=== PATIENT | female | born 1960 | race Hispanic/Latino ===

== ENCOUNTER 2024-01-13 19:12 | Emergency (ER) | payer SELFPAY ==
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
[2024-01-13] MEDS: PERCOCET 5/325 1 TABLET PO (20:07)
[2024-01-13 20:19] VITALS: BP 122/68
== END 2024-01-13 21:11 | disposition home or self-care (01) ==
LOC: EMR 19:12
PROVIDERS: EMERGENCY PHYSICIAN Emergency Medicine
DX: S82.831A Other fracture of upper and lower end of right fibula, initial encounter for closed fracture (principal); W19.XXXA Unspecified fall, initial encounter; R03.0 Elevated blood-pressure reading, without diagnosis of hypertension
CPT/HCPCS: 99283; 29515; 73610

== ENCOUNTER → 2024-01-14 14:08 | Outpatient (REF) | payer SELFPAY ==
[2024-01-14 16:56] LABS: % Basophils 0.5 % (0-2); % Eosinophils 3.7 % (0-6); % Immature Granulocytes 0.2 % (0-0.5); % Lymphocytes 31.9 % (20.5-51.1); % Monocytes 7.6 % (1.7-9.3); % Neutrophils 56.1 % (42.2-75.2); Absolute Eosinophils 0.2 10^3/uL (0-0.7); Absolute Monocytes 0.5 10^3/uL (0.1-0.6); Absolute Neutrophils 3.5 10^3/uL (1.4-6.5); Hematocrit 36.8 % (37.0-47.0); Hemoglobin 12.1 g/dL (12.0-16.0); Mean Corp Hgb Conc. 32.9 g/dL (33.0-37.0); Mean Corpuscular Hgb 30.3 pg (27.0-31.0); Mean Corpuscular Volume 92.2 fL (81.0-99.0); Mean Platelet Volume 9.9 fL (7.4-10.4); Nucleated Red Blood Cells % 0.5 %; Platelet Count 346 10^3/uL (130-400); Red Blood Cell Count 3.99 10^6/uL (4.20-5.40); White Blood Cell Count 6.2 10^3/uL (4.8-10.8)
[2024-01-14 17:08] LABS: Blood Urea Nitrogen 11 mg/dl (7-17); Calcium 9.8 mg/dl (8.4-10.2); Carbon Dioxide 27 mmol/L (22-30); Chloride 101 mmol/L (98-107); Glucose 88 mg/dl (70-99); Potassium 5.5 mmol/L (3.5-5.1); Sodium 136 mmol/L (135-145); eGFR > 60.00
== END ==
LOC: REG 14:08
PROVIDERS: ATTENDING PHYSICIAN Student in an Organized Health Care Education/Training Program
DX: Z01.818 Encounter for other preprocedural examination (principal)
CPT/HCPCS: 36415; 80048; 85025; 93005

== ENCOUNTER → 2024-01-17 13:57 | Day surgery (SDC) | payer SELFPAY ==
[2024-01-17] VITALS (7 sets, daily range): BP systolic 94–119; BP diastolic 44–77; BMI 34.3
--- NOTE | 2024-01-17 08:01 | PTCARENOTE ---
Patients 01/13 potassium 5.5Sharon Zelaya @ Dr. Oconnor office notified
[2024-01-17] MEDS: TYLENOL 1000 MG PO (14:31)
[2024-01-17] MEDS: CELEBREX 200 MG PO (14:32)
[2024-01-17 15:00] LABS: Potassium 4.4 mmol/L (3.5-5.1)
[2024-01-17] MEDS: DILAUDID 0.25 MG IV (19:10)
[2024-01-17] MEDS: ROXICODONE 5 MG PO (19:42)
== END ==
LOC: SDS 13:57
PROVIDERS: ATTENDING PHYSICIAN Student in an Organized Health Care Education/Training Program
DX: S82.851A Displaced trimalleolar fracture of right lower leg, initial encounter for closed fracture (principal); S93.431A Sprain of tibiofibular ligament of right ankle, initial encounter; W19.XXXA Unspecified fall, initial encounter
CPT/HCPCS: 27822; 27829; 73600; 76000; 84132; C1713